=== PATIENT | male | born 1940 | race Caucasian/White ===

== ENCOUNTER → 2022-09-30 | Day surgery (SDC) | payer MEDICARE, BC ==
[~2022-09-30] MED LIST: Lactated Ringers 1,000 ML IV SCH; Lidocaine 2% 5 ML SDV ONE; Phenylephrine 1% 10 MG/ML SDV ONE; Propofol 200 MG/20 ML SDV ONE; fentaNYL 50 MCG/ML SDV ONE
== END ==
LOC: CC.SDS 11:31
PROVIDERS: ATTEND Family Medicine
DX: K21.00 Gastro-esophageal reflux disease with esophagitis, without bleeding (principal); K31.89 Other diseases of stomach and duodenum; K44.9 Diaphragmatic hernia without obstruction or gangrene; D12.6 Benign neoplasm of colon, unspecified; K22.70 Barrett's esophagus without dysplasia; M19.90 Unspecified osteoarthritis, unspecified site; J30.9 Allergic rhinitis, unspecified; Z79.899 Other long term (current) drug therapy; Z98.890 Other specified postprocedural states; Z87.891 Personal history of nicotine dependence
CPT/HCPCS: 43239; 87081; J2370; J2704; J3010; J7120; 88305

== ENCOUNTER 2024-08-16 18:51 | Emergency (ER) | payer MEDICARE, BC ==
[2024-08-16] MEDS ORDERED: Sodium Chloride 0.9% 10 ML Syringe FLUSH PRN (19:03)
[2024-08-16 19:05] LABS: BASOPHILS ABSOLUTE AUTO 0.03 10^3/uL (0.00-0.50); BASOPHILS PERCENT AUTO 0.2 % (0-1); EOSINOPHILS ABSOLUTE AUTO 0.09 10^3/uL (0.00-1.50); EOSINOPHILS PERCENT AUTO 0.7 % (0-6); HEMATOCRIT 44.9 % (42.0-52.0); HEMOGLOBIN 14.9 g/dL (14.0-18.0); IMMATURE GRAN ABSOLUTE AUTO 0.02 10^3/uL (0.00-0.49); IMMATURE GRAN PERCENT AUTO 0.1 % (0.0-4.9); LYMPHOCYTES ABSOLUTE AUTO 1.43 10^3/uL (0.60-5.00); LYMPHOCYTES PERCENT AUTO 10.6 % (24-44); MEAN CORPUSCULAR HEMOGLOBIN 31.4 pg (27.0-32.0); MEAN CORPUSCULAR HGB CONC 33.2 g/dL (32.0-36.0); MEAN CORPUSCULAR VOLUME 94.7 fL (83.0-97.0); MONOCYTES ABSOLUTE AUTO 0.98 10^3/uL (0.00-1.50); MONOCYTES PERCENT AUTO 7.3 % (0-10); NEUTROPHILS ABSOLUTE AUTO 10.89 x10^3/uL (1.80-8.00); NEUTROPHILS PERCENT AUTO 81.1 % (41-71); RED BLOOD CELL COUNT 4.74 x10^6/uL (4.50-6.00); WHITE BLOOD CELL COUNT,WBC 13.4 10^3/uL (4.0-11.0)
[2024-08-16 19:06] LABS: APPEARANCE,URINE CLEAR (CLEAR); BILIRUBIN,URINE NEGATIVE (NEGATIVE); COLOR,URINE YELLOW (YELLOW); GLUCOSE,URINE NEGATIVE (NEGATIVE); KETONES,URINE NEGATIVE (NEGATIVE); LEUKOCYTE ESTERASE,URINE NEGATIVE (NEGATIVE); NITRITE,URINE NEGATIVE (NEGATIVE); OCCULT BLOOD,URINE MODERATE (NEGATIVE); PROTEIN,URINE NEGATIVE (NEGATIVE); UROBILINOGEN,URINE 0.2 EU/dL (0.2-1.0)
[2024-08-16 19:08] LABS: PLATELET COUNT,PLT 192 10^3/uL (150-400)
[2024-08-16 19:10] LABS: RBC,URINE 20-30 /HPF (0-5); WBC,URINE 0-5 /HPF (0-5)
[2024-08-16 19:11] LABS: BACTERIA,URINE RARE /HPF (NOT SEEN); EPITHELIAL CELLS,URINE NOT SEEN /HPF (NOT SEEN); MUCUS,URINE FEW /HPF (NOT SEEN)
[2024-08-16] MEDS: Ondansetron 4 MG/2 ML SDV IVPUSH STA (19:17)
[2024-08-16] MEDS: HYDROmorphone 0.5 MG/0.5 ML Syringe IVPUSH ONE ×2 (19:18→20:16)
[2024-08-16 19:19] LABS: ALANINE AMINOTRANSFERASE,ALT 24 U/L (12-78); ALBUMIN 3.4 g/dL (3.4-5.0); ALKALINE PHOSPHATASE 95 U/L (46-116); ASPARTATE AMNIOTRANSFERASE,AST 29 U/L (15-37); BILIRUBIN TOTAL 0.4 mg/dL (0.0-1.0); BLOOD UREA NITROGEN,BUN 19 mg/dL (7-18); CALCIUM 9.1 mg/dL (8.4-10.1); CARBON DIOXIDE,CO2 25 mmol/L (21-32); CHLORIDE,CL 103 mEq/L (98-106); CREATININE 1.3 mg/dL (0.7-1.3); GLUCOSE RANDOM 129 mg/dL (75-99); POTASSIUM,K 4.4 mEq/L (3.5-5.0); PROTEIN TOTAL,TP 6.6 g/dL (6.4-8.2); SODIUM,NA 138 mEq/L (136-145)
[2024-08-16] MEDS: Sodium Chloride 0.9% 1,000 ML IV ONE (19:19)
[2024-08-16 19:20] LABS: C-REACTIVE PROTEIN < 0.50 mg/dL (<=0.50); ESTIMATED GFR 55 mL/min (>=60)
[2024-08-16] MEDS: Iopamidol 755 Mg/ML 100 ML Bottle IVPUSH ONE (19:45)
[2024-08-16] MEDS: Tamsulosin 0.4 MG Cap.ER PO ONE (21:20)
[2024-08-16] MEDS: Ketorolac 30 MG/ML SDV IVPUSH ONE (21:20)
[2024-08-16] MEDS: Take Home: Ketorolac 10 MG Tab, 4 Tab Pack PO ONE (21:50)
== END 2024-08-16 22:35 | disposition home or self-care (01) ==
LOC: CC.ED 18:51
DX: K59.01 Slow transit constipation (principal); N20.0 Calculus of kidney; Z79.899 Other long term (current) drug therapy
CPT/HCPCS: 36415; 74177; 80053; 81001; 85025; 86140; 96361; 96374; 96375; 96376; 99284; A9270; J1171; J1885; J2405; J7030; Q9967

== ENCOUNTER 2025-08-11 20:59 | Emergency (ER) | payer MEDICARE ==
[2025-08-11] MEDS: Nitroglycerin 0.4 MG Tab.SL SL PRN (21:26)
[2025-08-11 21:29] LABS: BASOPHILS ABSOLUTE AUTO 0.02 10^3/uL (0.00-0.50); BASOPHILS PERCENT AUTO 0.2 % (0-1); EOSINOPHILS ABSOLUTE AUTO 0.07 10^3/uL (0.00-1.50); EOSINOPHILS PERCENT AUTO 0.5 % (0-6); IMMATURE GRAN ABSOLUTE AUTO 0.02 10^3/uL (0.00-0.49); IMMATURE GRAN PERCENT AUTO 0.2 % (0.0-4.9); LYMPHOCYTES ABSOLUTE AUTO 0.88 10^3/uL (0.60-5.00); LYMPHOCYTES PERCENT AUTO 6.8 % (24-44); MONOCYTES ABSOLUTE AUTO 0.80 10^3/uL (0.00-1.50); MONOCYTES PERCENT AUTO 6.2 % (0-10); NEUTROPHILS ABSOLUTE AUTO 11.10 x10^3/uL (1.80-8.00); NEUTROPHILS PERCENT AUTO 86.1 % (41-71); PLATELET COUNT,PLT 221 10^3/uL (150-400); RED BLOOD CELL COUNT 4.38 x10^6/uL (4.50-6.00); WHITE BLOOD CELL COUNT,WBC 12.9 10^3/uL (4.0-11.0)
[2025-08-11 21:40] LABS: ALANINE AMINOTRANSFERASE,ALT 30.0 U/L (12-78); ASPARTATE AMNIOTRANSFERASE,AST 30.0 U/L (15-37); BILIRUBIN TOTAL 0.6 mg/dL (0.0-1.0); BLOOD UREA NITROGEN,BUN 23.0 mg/dL (7-18); CARBON DIOXIDE,CO2 27.0 mmol/L (21-32); CHLORIDE,CL 104.0 mEq/L (98-106); CREATINE KINASE,CK 359.0 U/L (35-232); CREATININE 1.0 mg/dL (0.7-1.3); EST CRCL DRUG DOSING (CG) 48.69 mL/min; GLUCOSE RANDOM 111.0 mg/dL (75-99); LACTATE DEHYDROGENASE,LDH 119.0 U/L (100-190); POTASSIUM,K 4.0 mEq/L (3.5-5.0); PROTEIN TOTAL,TP 6.4 g/dL (6.4-8.2); SODIUM,NA 141.0 mEq/L (136-145)
[2025-08-11 21:41] LABS: ESTIMATED GFR 75.0 mL/min (>=60)
[2025-08-11 21:43] LABS: INR 0.98 (0.92-1.18); PTT,PARTIAL THROMBOPLSTIN TIME 25.6 SEC (20.0-30.0)
[2025-08-11] MEDS: Heparin Sodium 5,000 Units/ML Vial IVPUSH ONE (22:07)
[2025-08-11] MEDS: Heparin Sodium/0.45% NaCl 25,000 UNITS/250 ML BAG IV SCH (22:13)
[2025-08-11] MEDS: Norepinephrine Bit/D5W Premix 4 MG/250 ML BAG IV SCH (22:33)
[2025-08-11] MEDS: Norepinephrine Bit/D5W Premix 4 MG/250 ML BAG ONE (22:39)
[2025-08-11] MEDS: NOREPINEPHRINE BIT ONE (22:39)
[2025-08-11] MEDS: D5W ONE (22:39)
[2025-08-11] MEDS: Ondansetron 4 MG/2 ML SDV IVPUSH STA (22:56)
== END 2025-08-11 23:00 ==
LOC: CC.ED 20:59
DX: I21.3 ST elevation (STEMI) myocardial infarction of unspecified site (principal); E78.00 Pure hypercholesterolemia, unspecified; Z79.899 Other long term (current) drug therapy; Z88.8 Allergy status to other drugs, medicaments and biological substances
CPT/HCPCS: 36415; 71045; 80053; 82550; 83615; 83690; 83735; 84484; 85025; 85610; 85730; 92977; 93010; 96365; 96368; 96375; 99284; 99285-25; A9270-GY; J1644; J2405; J3101; J7030